=== PATIENT | female | born 1935 | race Caucasian/White ===

== ENCOUNTER 2017-06-01 06:54 | Emergency (ER) | payer OTHER ==
[2017-06-01 07:57] LABS: #Eosinphils 0.1 thou/uL (0.0-0.7); #Monocytes 0.4 thou/uL (0.11-0.59); #Neutrophils 5.4 thou/uL (1.40-6.50); %Basophils 0.2 % (0.0-1.0); %Eosinophils 1.9 % (0.0-10.0); %Lymphocytes 14.1 % (21.0-51.0); %Monocytes 5.7 % (0.0-10.0); Hematocrit 33.8 % (36.0-47.0); Mean Platelet Volume 7.1 fL (7.4-10.4); Red Blood Cell (RBC) Count 3.61 mill/uL (4.20-5.40)
[2017-06-01 08:03] LABS: PTT 31.4 SEC (22.9-36.1); Prothrombin Time 15.9 SEC (12.0-14.7)
[2017-06-01 08:23] LABS: ALT (SGPT) 15 U/L (8-55); AST (SGOT) 20 U/L (5-34); Alkaline Phosphatase 55 U/L (40-150); Anion Gap 13 mmol/L (10-20); BUN (Urea Nitrogen) 16 mg/dL (9.8-20.1); Bilirubin, Total 0.7 mg/dL (0.2-1.2); Calc. Creatinine Clearance 0 mL/min (70-130); Calcium 9.1 mg/dL (7.8-10.44); Carbon Dioxide 23 mmol/L (23-31); Chloride 109 mmol/L (98-107); Estimated GFR-MDRD 78; Globulin 2.8 g/dL (2.4-3.5); Lipase 160 U/L (8-78); Protein, Total 6.6 g/dL (6.0-8.3)
[2017-06-01] MEDS ORDERED: Ondansetron HCl/PF 4 MG/2 ML Vial ONE (08:23)
[2017-06-01 08:27] LABS: Troponin I Less than 0.010 ng/mL (< 0.028)
--- NOTE | 2017-06-01 08:42 | RAD ---
1 VIEW CHEST: Date: 06/01/17 COMPARISON: 04/09/07. HISTORY: Chest pain and shortness of breath. FINDINGS: Sternotomy wires and vascular rings are redemonstrated. There is atherosclerosis of the aorta. Gibbs ry artery calcification is identified. Stable left-sided transverse pacemaker. Peristent cardiomegaly . Pulmonary vessels are within normal limits. Costophrenic angles are clear. No consolidation or mass . No pneumothorax or osseous abnormalities. IMPRESSION: 1. Cardiomegaly. 2. Atherosclerosis. 3. No evidence of congestive heart failure. POS: [facility]
[2017-06-01 08:52] LABS: Bilirubin Small (Negative); Blood, Urine Negative (Negative); Glucose, Urine (Dipstick) Negative (Negative); Ketone, Urine Negative (Negative); Nitrite Negative (Negative); Protein, Urine (Dipstick) Trace mg/dL (Neg-Trace)
== END 2017-06-01 11:11 | disposition home or self-care (01) ==
LOC: ERS 06:54
DX: K29.70 Gastritis, unspecified, without bleeding (principal); Z87.891 Personal history of nicotine dependence
CPT/HCPCS: 36415; 71010; 80053; 81003; 82553; 83690; 84443; 84484; 85025; 85610; 85730; 93005; 96361; 96374; J2405

== ENCOUNTER 2017-08-13 11:57 | Outpatient (CLI) | payer MEDICARE, BC ==
--- NOTE | 2017-08-13 16:02 | PET ---
PET CT EVALUATION: Date: 08/13/17 INDICATION: History of left lung adenocarcinoma with lepidic growth. TECHNIQUE: PET CT images were obtained from the skull base to the mid thigh following intravenous administration of 9.9 mCi [id number] IV. CT images were obtained for attenuation correction purposes only. No comparis ons are available. FINDINGS: Head/Neck: No hypermetabolic lymphadenopathy or mass demonstrated. Chest: There is a 3.2 cm left upper lobe ground-glass mass with a maximum SUV uptake of 1.36 and a mean upta ke of 1.12, consistent with patient's history of adenocarcinoma of the left upper lobe. There is an additional serpiginous nodular opacity within the medial aspect of the apical posterior s egment of the left upper lobe with a maximum uptake of 2.34 and a mean uptake of 2.06, best seen on i mage [address], which is nonspecific. This may reflect an area of focal mucus plugging or p ossibly a small area of bronchiolitis. There are areas of tree-in-bud nodularity seen within the periphery of the right upper lobe, right lo wer lobe, and left lower lobe, likely indicative of some underlying bronchiolitis. This is most likel y related to an underlying respiratory bronchiolitis of infectious or inflammatory etiology. Metastat ic disease is felt to be less likely. Abdomen/Pelvis: No hypermetabolic mass or lymphadenopathy is evident. Osseous and Skin Structures: No hypermetabolic skin or osseous lesion is demonstrated. IMPRESSION: 1. 3.2 cm nonhypermetabolic ground-glass mass within the left upper lobe consistent with patient's h istory of left lung adenocarcinoma. There is no evidence to suggest metastatic disease within the abd omen, pelvis, skin, or osseous structures. 2. Serpiginous nodular opacity within the left upper lobe with mild increased FDG uptake measuring u p to 1.6 cm may reflect an area of mucus plugging or bronchiolitis. Short-term CT follow-up is recomm ended. This would also be helpful for the short-term follow-up of the additional tree-in-bud nodules seen within the periphery of the right upper lobe and both lung bases. Findings are likely reflective of underlying bronchiolitis. Again, short-term follow-up to exclude the presence of metastatic disea se is recommended. POS: [facility]
== END 2017-08-13 11:58 | disposition home or self-care (01) ==
LOC: PET 11:57
PROVIDERS: ATTEND Internal Medicine
DX: R91.1 Solitary pulmonary nodule (principal)
CPT/HCPCS: 78815; A9552

== ENCOUNTER 2017-09-10 08:09 | Observation (INO) | payer MEDICARE, BC ==
[2017-09-10 08:54] LABS: #Eosinphils 0.1 thou/uL (0.0-0.7); #Lymphocytes 1.1 thou/uL (1.20-3.40); #Monocytes 0.4 thou/uL (0.11-0.59); #Neutrophils 5.4 thou/uL (1.40-6.50); %Basophils 0.4 % (0.0-1.0); %Eosinophils 1.1 % (0.0-10.0); %Lymphocytes 15.6 % (21.0-51.0); %Monocytes 6.1 % (0.0-10.0); %Neutrophils 76.8 % (42.0-75.0); Hemoglobin 12.6 g/dL (12.0-16.0); Mean Corpuscular HGB CONC 33.2 g/dL (32.0-36.0); Mean Corpuscular Hemoglobin 29.7 pg (27.0-31.0); Mean Corpuscular Volume 89.5 fl (81.0-99.0); Platelet Count 184 thou/uL (130-400); RBC Distribution Width 12.6 % (11.5-14.5); Red Blood Cell (RBC) Count 4.23 mill/uL (4.20-5.40)
--- NOTE | 2017-09-10 09:18 | RAD ---
ONE VIEW CHEST: History: 82-year-old female with history of shortness of breath and dyspnea. Comparison: 06-01-17 FINDINGS: Cardiomegaly with post underlying sternotomy and left ICD changes. Mild increased markings bilaterall y but no confluent pneumonia, overt edema or pleural effusion. IMPRESSION: Stable cardiomegaly and mild chronic changes. No pneumonia, edema, pleural effusion or other acute pr ocess. POS: [facility]
[2017-09-10 09:19] LABS: ALT (SGPT) 13 U/L (8-55); AST (SGOT) 18 U/L (5-34); Albumin 4.3 g/dL (3.4-4.8); Alkaline Phosphatase 77 U/L (40-150); Anion Gap 14 mmol/L (10-20); BUN (Urea Nitrogen) 20 mg/dL (9.8-20.1); Bilirubin, Total 0.8 mg/dL (0.2-1.2); CK (CPK) 51 U/L (29-168); Calc. Creatinine Clearance 0 mL/min (70-130); Carbon Dioxide 24 mmol/L (23-31); Chloride 106 mmol/L (98-107); Estimated GFR-MDRD 73; Globulin 3.6 g/dL (2.4-3.5); Glucose 107 mg/dL (83-110); Potassium 3.9 mmol/L (3.5-5.1); Protein, Total 7.9 g/dL (6.0-8.3); Sodium 140 mmol/L (136-145)
[2017-09-10 09:24] LABS: CKMB 1.4 ng/mL (0-6.6); Troponin I Less than 0.010 ng/mL (< 0.028)
[2017-09-10 12:22] LABS: Troponin I Less than 0.010 ng/mL (< 0.028)
[2017-09-10 12:55] VITALS: BMI 28.8
[2017-09-10] MEDS ORDERED: Ondansetron HCl/PF 4 MG/2 ML Vial IVP PRN ×2 (12:55→19:25)
[2017-09-10] MEDS ORDERED: Ondansetron ODT 4 MG TAB PO PRN ×2 (12:55→19:25)
[2017-09-10] MEDS ORDERED: Acetaminophen 325 MG TAB PO PRN (12:55)
[2017-09-10 16:12] LABS: Troponin I Less than 0.010 ng/mL (< 0.028)
[2017-09-10] MEDS ORDERED: cloNIDine 0.1 MG TAB PO PRN (19:25)
[2017-09-10] MEDS ORDERED: tiZANidine HCl 4 MG TAB PO PRN (19:25)
[2017-09-10] MEDS ORDERED: hydrOXYzine 25 MG TAB PO PRN (19:25)
[2017-09-10] MEDS ORDERED: hydrALAZINE 20 MG/ML VIAL SLOW IVP PRN (19:25)
[2017-09-10] MEDS ORDERED: Acetaminophen 500 MG TAB PO PRN (19:25)
[2017-09-10] MEDS ORDERED: Gabapentin 100 MG CAP PO SCH (21:00)
[2017-09-10] MEDS ORDERED: Donepezil HCl 10 MG TAB PO SCH (21:00)
[2017-09-10] MEDS: Apixaban 5 MG TAB PO SCH (21:58)
[2017-09-10] MEDS: Metoprolol Tartrate 25 MG TAB PO SCH (21:58)
[2017-09-10] MEDS: Famotidine 20 MG TAB PO SCH (21:58)
[2017-09-10] MEDS: Acetaminophen/Codeine 30-300mg Tablet PO SCH (23:08)
[2017-09-11 04:40] VITALS: TEMP 98.7
[2017-09-11 04:56] LABS: Anion Gap 10 mmol/L (10-20); BUN (Urea Nitrogen) 19 mg/dL (9.8-20.1); Calc. Creatinine Clearance 64 mL/min (70-130); Calcium 9.6 mg/dL (7.8-10.44); Carbon Dioxide 26 mmol/L (23-31); Cardiac Risk 3.4 (Less than 4.5); Chloride 109 mmol/L (98-107); Cholesterol 125 mg/dl (< 200 Desired); Estimated GFR-MDRD 78; Glucose 88 mg/dL (83-110); HDL Cholesterol 37 mg/dL (>60 Neg Risk); LDL Cholesterol, Calculated 71 mg/dL; Potassium 3.8 mmol/L (3.5-5.1); Sodium 141 mmol/L (136-145); Triglycerides 84 mg/dL (Less than 150)
[2017-09-11] MEDS: Acetaminophen/Codeine 30-300mg Tablet PO SCH ×2 (05:01→13:21)
[2017-09-11 05:19] LABS: Band 3 % (5-11); Eosinophils 1 % (0-10); Hemoglobin 11.9 g/dL (12.0-16.0); Lymphocytes 27 % (21-51); MDiff Complete? YES; Mean Corpuscular HGB CONC 33.8 g/dL (32.0-36.0); Mean Corpuscular Hemoglobin 30.4 pg (27.0-31.0); Mean Corpuscular Volume 90.1 fl (81.0-99.0); Mean Platelet Volume 6.9 fL (7.4-10.4); Monocytes 3 % (0-10); Neutrophil 65 % (42-75); Platelet Count 168 thou/uL (130-400); RBC Distribution Width 12.5 % (11.5-14.5); White Blood Cell (WBC) Count 5.2 thou/uL (4.8-10.8)
[2017-09-11] MEDS ORDERED: Mometasone/Formoterol 120 PUFF INHALER INH SCH (06:30)
[2017-09-11 08:28] VITALS: BP 170/78
--- NOTE | 2017-09-11 08:31 | HP ---
DATE OF ADMISSION: 09/10/2017 PRIMARY CARE PHYSICIAN: Dr. Chauncey Vasques. CHIEF COMPLAINT: Neck and chest pain. HISTORY OF PRESENT ILLNESS: This is an 82-year-old female who presented to [facility] with a plethora of complaints related to neck pain with some radiation into the ch est region and short bilateral shoulders. The patient states she has had intermittent symptoms of ne ck pain and chest discomfort over the last several days, worsening in the last 48 hours. The patient denied any central chest pressure, but stated she had some associated diaphoresis with the neck pain . The patient became concerned enough about her neck symptoms seeking care at a local urgent care fa cility, patient became so concerned with the neck pain. She sought care at Urgent care facility rece iving pain medication to include Tylenol #3 in addition to Zanaflex. The patient states she only too k 2 doses of the muscle relaxer as this made her feel unusual and worsened her symptoms. The patient does admit to a history of coronary artery disease status post coronary artery bypass grafting with a redo procedure in 1995. The patient also states she has undergone cardiac stent placement in 2000. The patient admits she has been compliant with her chronic medication regimen and is followed on a regular basis with Cardiology service at [facility]. The patient also states a re cent diagnosis of suspected left upper lobe lung adenocarcinoma followed by pulmonology service at [facility] in [place]. The patient states she has received no specific ther apy and states a biopsy has not been performed. The patient states she underwent a PET scan approxim ately a month prior to this evaluation confirming the presence of a lung mass. In the emergency room , the patient underwent general evaluation including chest imaging showing no acute infiltrates. The patient also underwent EKG evaluation showing a right bundle-branch block pattern, but no evidence o f acute ST-T wave changes. The patient was referred to the Hospitalist Service for further evaluatio n and cardiac workup. PAST MEDICAL HISTORY: 1. Coronary artery disease, status post bypass grafting in 1988 with redo in 1995 at [facility] in [place]. 2. Hypertension. 3. Hyperlipidemia. 4. History of polymyalgia rheumatica. 5. History of tobacco use, abstinent since 1987. 6. Gastroesophageal reflux with Orozco's esophagitis, status post fundoplication. 7. Lung adenocarcinoma, recent diagnosis. No current treatment. 8. Question of chronic obstructive pulmonary disease. 9. Hypertension. 10. Question of anxiety. PAST SURGICAL HISTORY: 1. Status post coronary artery bypass grafting in 1988 with redo in 1995. 2. Status post cardiac stent placement. 3. Status post pacemaker placement. 4. Status post laparoscopic cholecystectomy. 5. Status post EGD with fundoplication. 6. Status post total abdominal hysterectomy with bilateral salpingo-oophorectomy in 1977. CURRENT MEDICATIONS: 1. Tylenol #3 of 300/30 mg 1 tab p.o. q.6 hours p.r.n. 2. Eliquis 5 mg p.o. b.i.d. 3. Lipitor 10 mg one tablet p.o. daily. 4. Symbicort 160/4.5 two puffs inhaled b.i.d. 5. Donepezil 10 mg p.o. at bedtime. 6. Gabapentin 200 mg p.o. at bedtime. 7. Hydroxyzine 25 mg p.o. at bedtime p.r.n. 8. Isosorbide mononitrate 60 mg p.o. daily. 9. Losartan 50 mg p.o. daily. 10. Lopressor 25 mg p.o. b.i.d. 11. Protonix 40 mg p.o. daily. 12. Ranexa 500 mg p.o. b.i.d. 13. Tizanidine 4 mg p.o. t.i.d. p.r.n. muscle spasms. ALLERGIES: No known drug allergies. FAMILY HISTORY: Father at age 64, after complications of myocardial infarction. Mother in her 90s secondary to coronary artery disease. One brother of metastatic cancer, unknown ty pe. SOCIAL HISTORY: Patient is since 2013. Originally from [place]. Worked in a [employer]. Lives independently in [place], [place]. No current alcohol, tobacco or illicit drug use. Quit lin Girly Stuff in 1987. REVIEW OF SYSTEMS: The following complete review of systems was negative, unless otherwise mentioned in the HPI or below: Constitutional: Weight loss or gain, abil ity to conduct usual activities. Skin: Rash, itching. Eyes: Double vision, pain. ENT/Mouth: Nos e bleeding, neck stiffness, pain, tenderness. Cardiovascular: Palpitations, dyspnea on exertion, or thopnea. Respiratory: Shortness of breath, wheezing, cough, hemoptysis, fever or night sweats. Gas trointestinal: Poor appetite, abdominal pain, heartburn, nausea, vomiting, constipation, or diarrhea . Genitourinary: Urgency, frequency, dysuria, nocturia. Musculoskeletal: Pain, swelling. Neurolo gic/Psychiatric: Anxiety, depression. Allergy/Immunologic: Skin rash, bleeding tendency. PHYSICAL EXAMINATION: VITAL SIGNS: On admission, blood pressure 175/72, pulse 62, respiratory rate 20, temperature 99 degr ees Fahrenheit, O2 saturation 93% on room air. GENERAL APPEARANCE: This is an 82-year-old female, alert and oriented x3, pleasant, conver alberto with mild anxiety. HEENT: Pupils are equal, round, and reactive to light and accommodation. Extraocular muscles are in tact. No scleral icterus, no conjunctival injection. Nares patent. OP is clear. Teeth in fair rep air. NECK: Supple. Mild tenderness to palpation in the sternocleidomastoid distribution in the occiput r egion and mastoid area bilaterally. No cervical adenopathy appreciated. No thyromegaly. Left carot id bruit appreciated. Cervical spine with decreased range of motions in the terminal degrees of rota tion. CHEST: Lungs are clear to auscultation bilaterally. CARDIOVASCULAR: S1, S2, without noted murmur. Left-sided pacemaker device in place. ABDOMEN: Obese, soft, nontender, nondistended. Bowel sounds are positive in all 4 quadrants. Landm arks are difficult to palpate due to patient's body habitus. EXTREMITIES: Warm and dry with fair turgor. No clubbing, cyanosis or asymmetric edema appreciated. Pulses palpable distally at the dorsalis pedis, posterior tibial, and popliteal arteries bilaterally . Capillary refill less than 2 seconds. NEUROLOGIC: Cranial nerves II-XII are grossly intact. No focal or lateralizing signs appreciated. PERTINENT LABORATORY AND X-RAY FINDINGS: Complete metabolic profile within normal limits. BNP 360. Troponin I negative x3. CBC showed white blood cell count of 7.0, hemoglobin 12.6, hematocrit 37.9, platelet count 184,000 with 77% neutrophilia. Portable chest x-ray dated 09/10/2017 showed no acute cardiopulmonary process. EKG dated 09/10/2017 by my interpretation shows a paced rhythm with heart rates in the 60s. Right bundle-branch block pattern noted. ASSESSMENT AND PLAN: 1. Question of chest/neck pain. The patient will be observed on the telemetry unit. Suspect muscul oskeletal in origin given the patient's history and physical findings. We will check fasting lipid p rofile in the a.m. We will proceed with CT imaging of the cervical spine to rule out the cervical di sk disease or stenosis to confirm radiculopathy. No current evidence to suggest acute coronary syndr ome. Continue aspirin 325 mg daily. 2. Seroquel myalgias. We will continue tizanidine 4 mg p.o. q.8 hours p.r.n. Resume home Tylenol # 3 of 300/30 mg 1 tab p.o. q.6 hours p.r.n. 3. Hypertension. Resume home antihypertensive regimen and monitor clinical response. 4. Coronary artery disease. Chronic and stable. No current evidence to suggest acute coronary synd yevgeniy. Check 2D transthoracic echocardiogram for wall motion abnormalities. 5. Suspected left upper lobe adenocarcinoma of the lung. Continue supportive management. No furthe r investigation planned. The patient will follow up as an outpatient with Medical Oncology at [facility] in [place]. 6. Prophylaxis. Sequential compression devices while in bed. Protonix 40 mg p.o. daily. 7. Code status is FULL. Surrogate medical decision maker is Allison Mai.
[2017-09-11] MEDS ORDERED: Aspirin 325 MG TAB PO SCH (09:00)
[2017-09-11] MEDS ORDERED: Losartan 25 MG TAB PO SCH (09:00)
[2017-09-11] MEDS ORDERED: Atorvastatin Calcium 10 MG TAB PO SCH (09:00)
[2017-09-11] MEDS: Apixaban 5 MG TAB PO SCH (10:18)
[2017-09-11] MEDS: Famotidine 20 MG TAB PO SCH (10:19)
[2017-09-11] MEDS: Metoprolol Tartrate 25 MG TAB PO SCH (10:19)
--- NOTE | 2017-09-11 11:25 | CT ---
CERVICAL SPINE CT: Date: 09-11-17 Comparison: None. History: Neck pain and radiculopathy. Technique: Serial axial CT imaging is obtained at 2.5 mm intervals from the skull base through the cj ng apices with intravenous contrast media. Coronal and sagittal reformatted imaging obtained. FINDINGS: There is a hazy area of partially visualized airspace disease/ground glass opacity within the left cj ng apex involving the superolateral aspect of the left upper lobe, incompletely assessed on this exam . There is a incompletely evaluated transvenous pacing device. Midline sternotomy wires are present. Visualized right lung apex is unremarkable. The imaged paranasal sinuses and mastoid air cells are well aerated. There is prominent degenerative change at the atlantoaxial interspace with interspace narrowing, subc hondral sclerosis and osteophyte formation. The craniocervical junction and the cervicothoracic junction are intact. There is no prevertebral sof t tissue swelling. There is no anterolisthesis or retrolisthesis noted within the cervical spine. C2-3: Mild bilateral facet hypertrophy. No osseous cause of significant central or neural foraminal s tenosis. C3-4: Prominent right sided facet and uncal vertebral osteophyte formation with associated right side d neural foraminal stenosis. No osseous cause of significant central canal or left neural foraminal s tenosis. C4-5: Disc space narrowing and posterior osteophyte noted. Facet and uncal vertebral osteophyte forma tion on the left present with associated left neural foraminal stenosis. No significant right neural foraminal stenosis. C5-6: There is disc space narrowing with anterior and posterior osteophyte formation. Facet and uncal vertebral osteophyte formation noted bilaterally, right greater than left. At least mild central can al stenosis and bilateral neural foraminal stenosis noted. C6-7: Facet and uncal vertebral osteophyte formation on the left with mild left foraminal stenosis. N o osseous cause of significant central canal or right neural foraminal stenosis. C7-T1: Disc space narrowing and anterior osteophyte formation. Bilateral facet and uncal vertebral os teophyte formation. No osseous cause of significant central canal or neural foraminal stenosis. There are scattered areas of atherosclerotic calcification noted in the region of the aortic arch, at the level of the origin of the great vessels and involving the distal CCA bilaterally and the proxim al right ICA. IMPRESSION: 1. Multilevel degenerative change. No acute fracture or dislocation. 2. Nonspecific ill-defined incompletely assessed airspace disease/ground glass opacity in the left up per lobe. This was better assessed on the 08-13-[address], at which time it was reported to be consist ent with the patient's history of lung adenocarcinoma. POS: [facility]
--- NOTE | 2017-09-11 11:44 | CT ---
POST CONTRAST SOFT TISSUE NECK CT: History: Left upper lobe cancer. Pain. Radiculopathy. Comparison: None. Technique: Post contrast soft tissue neck CT is performed in the axial plane. Reformatted images are submitted for interpretation. FINDINGS: There appears to be a partially empty sella. Visualized brain parenchymal is unremarkable. Bilateral ocular lens implants are appropriately located. Both globes are intact. Visualized orbits a re unremarkable. Adequate aeration of the visualized sinuses and mastoid air cells. Nasopharynx is unremarkable. Limited evaluation of the oral cavities due to extensive dental amalgam artifact. No obvious masses in the oral cavity. Sagittal reformatted images demonstrate preservation of the midline fatty roof of the tongue. Questionable obscuration of the posterior right oral cavity mucosa. Direct visualization is recommended. Epiglottis has a normal caliber. Pre-epiglottic fat is p reserved. There is no prevertebral soft tissue swelling. The supraglottic, glottic, and subglottic are unremarkable. Symmetric attenuation of the parotid and submandibular glands. Thyroid gland is essentially unremarka ble. Hypodensity in the right thyroid lobe is noted. No evidence of lymphadenopathy by size criteria. The great vessel and carotid arteries demonstrate at herosclerotic in both carotid bifurcations, right greater than left. Symmetric attenuation of the sternocleidomastoid muscles. Varying degrees of central canal stenosis and foraminal narrowing on the basis of degenerative change . Cervical spine vertebral body height is maintained. No fracture. Upper mediastinum is unremarkable. There is a ground glass opacity, nonspecific in the left upper lob e. This opacity measures 2.4 x 2.8 cm. Small ground glass focus in the left upper lobe measuring 0.7 cm is also present. IMPRESSION: 1. Limited evaluation of the oral cavity. There is mild fullness in the posterior right oral cavity. Direct visualization is recommended. 2. No evidence of lymphadenopathy. 3. Atherosclerosis involving the carotid arteries. 4. Left upper lobe opacities, compatible with known malignancy. POS: [facility]
--- NOTE | 2017-09-11 12:18 | DIS ---
DATE OF ADMISSION: 09/10/2017 DATE OF DISCHARGE: 09/11/2017 DISCHARGE DIAGNOSES: 1. Chest pain/neck pain, noncardiac, stable. 2. Cervical myalgias. 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 4. Hypertension, stable. 5. Coronary artery disease, chronic and stable. 6. Suspected left upper lobe adenocarcinoma of the lung. CONSULTATIONS: None. PERTINENT LABORATORY AND X-RAY FINDINGS: Complete metabolic profile within normal limits. Total cho lesterol 125, triglycerides 84, HDL 37 and LDL 71. Troponin I negative x3. BNP 360. CBC showed a h emoglobin ranging between 12-12.6. Portable chest x-ray dated 09/10/2017, showed mild chronic change s in bilateral lung armijo without an acute process. CT of the cervical spine showed multilevel dege nerative changes, please see dictated report for full details. Incompletely visualized ground glass opacity in the left upper lobe. CT of the soft tissues of the neck, please see dictated report for f ull details. A 2D transthoracic echocardiogram dated 09/11/2017, pending at the time of this dictati on. HOSPITAL COURSE: The patient was observed on the telemetry unit after initially presenting with neck and questionable chest pain. The patient underwent a metabolic evaluation showing negative troponin x3. Chest imaging was unremarkable and patient was given general supportive measures for likely cer vical myalgias and musculoskeletal origin pain. The patient underwent CT evaluation of the cervical spine confirming multilevel degenerative changes with various degrees of neural foraminal encroachmen t. Current recommendations are for medical management and conservative measures. The patient may al so be considered for outpatient local facet block/injections on an outpatient basis. No specific marcie dence was identified concerning acute coronary syndrome. The patient underwent 2D transthoracic echo cardiogram with final results pending at the time of this dictation. Telemetry monitoring showed AV pacing with heart rates in the 80s without evidence of acute arrhythmia or dysrhythmia. Overall, the patient did remain clinically stable through the hospital course, tolerating regular oral intake, am bulating without assistance or difficulty with stable vital signs at the time of discharge. Lungs ar e clear to auscultation bilaterally. Cardiovascular exam shows normal S1 and S2 at the time of disch arge. The patient is ready for discharge on 09/11/2017. DISCHARGE MEDICATIONS: 1. Tylenol #3, 300/30 mg 1 tab p.o. q.6 hours p.r.n. pain. 2. Eliquis 5 mg p.o. b.i.d. 3. Lipitor 10 mg p.o. daily. 4. Symbicort 160/4.5 two puffs inhaled b.i.d. 5. Donepezil 10 mg p.o. at bedtime. 6. Gabapentin 200 mg p.o. at bedtime. 7. Hydroxyzine 25 mg p.o. at bedtime p.r.n. 8. Isosorbide mononitrate 60 mg p.o. daily. 9. Losartan 50 mg one tab p.o. daily. 10. Metoprolol tartrate 25 mg p.o. b.i.d. 11. Protonix 40 mg p.o. daily. 12. Ranexa 500 mg p.o. b.i.d. 13. Tizanidine 4 mg p.o. t.i.d. p.r.n. muscle spasms. FOLLOWUP: The patient may follow up with her primary care provider, Dr. Chauncey Vasques at [facility] in [place], [place] within 7 days. CONDITION ON DISCHARGE: Stable. ACTIVITY: Ad dali. DIET: Heart healthy. CODE STATUS: FULL. DISPOSITION: Home on 09/11/2017.
--- NOTE | 2017-09-29 01:26 | EKG ---
Test Reason : Blood Pressure : / mmHG Vent. Rate : 067 BPM Atrial Rate : 058 BPM P-R Int : 000 ms QRS Dur : 118 ms QT Int : 434 ms P-R-T Axes : 000 021 -18 degrees QTc Int : 458 ms Electronic atrial pacemaker Right bundle branch block Abnormal ECG Confirmed by RADHA STARK, CHACE ([id number]), editorial manager MIGUE OCHOA ([id number]) on 09/29/2017 1:25:39 AM Referred By: Confirmed By:CHACE GARCIA MD
== END 2017-09-11 13:21 | disposition home or self-care (01) ==
LOC: ERS 08:09 → 2SW 11:44
PROVIDERS: ADMIT Family Medicine; ATTEND Family Medicine
DX: R07.89 Other chest pain (principal); M54.2 Cervicalgia; M79.1 Myalgia; M47.812 Spondylosis without myelopathy or radiculopathy, cervical region; I10 Essential (primary) hypertension; I25.10 Atherosclerotic heart disease of native coronary artery without angina pectoris; E78.5 Hyperlipidemia, unspecified; M35.3 Polymyalgia rheumatica; C34.90 Malignant neoplasm of unspecified part of unspecified bronchus or lung; K21.9 Gastro-esophageal reflux disease without esophagitis; Z79.01 Long term (current) use of anticoagulants; Z79.51 Long term (current) use of inhaled steroids; Z79.899 Other long term (current) drug therapy; Z95.1 Presence of aortocoronary bypass graft; Z95.0 Presence of cardiac pacemaker; Z90.710 Acquired absence of both cervix and uterus; Z90.79 Acquired absence of other genital organ(s); Z90.722 Acquired absence of ovaries, bilateral; Z98.890 Other specified postprocedural states; Z87.891 Personal history of nicotine dependence
CPT/HCPCS: 70491; 71045; 72126; 80048; 80053; 80061; 82550; 82553; 83880; 84484 ×2; 85007; 85025; 85027; 93005; 93306; 94640; 94760 ×2; 99285; G0378; 36415; 72125